=== PATIENT | male | born 1980 | race Native Hawaiian/Other Pacific Islander ===

== ENCOUNTER 2020-05-25 17:16 | Emergency (ER) | payer BC ==
[~2020-05-25] VITALS: Ht 182.9 cm; Wt 92.5 kg
[2020-05-25 18:27] LABS: PLATELET COUNT 239 K/uL (142-355)
[2020-05-25 18:39] LABS: POTASSIUM 4.1 mmol/L (3.6-5.2)
[2020-05-25 21:45] VITALS: BP 114/69; TEMP 97.6
== END 2020-05-25 21:45 | disposition home or self-care (01) ==
LOC: ED 17:16
PROVIDERS: Emergency Medicine
DX: K57.92 Diverticulitis of intestine, part unspecified, without perforation or abscess without bleeding (principal)
CPT/HCPCS: 80053; 81000; 82150; 83690; 85027; 96374; 96375; 99284; J1885; Q9963